=== PATIENT | male | born 1950 | race African-American/Black ===

== ENCOUNTER 2019-11-24 10:41 | Inpatient (IN) ==
[2019-11-24] MEDS ORDERED: ASPIRIN 325 MG TABLET PO STA (11:13)
[2019-11-24 11:18] LABS: Basophils % 0.8 % (0.0-0.8); Eosinophils # 0.1 10*3/uL (0.0-0.87); Eosinophils % 2.4 % (0.00-10.9); Immature Granulocytes % 0.2 %; Immature Granulocytes Absolute 0.01 #; Lymphocytes # 1.9 10*3/uL (1.4-4.0); Lymphocytes % 39.3 % (21.2-54.2); Mean Corpuscular HGB Conc 30.8 GM/DL (32-36); Mean Corpuscular Volume 94.2 FL (87-102); Mean Platelet Volume 10.7 FL (9.6-12.0); Monocytes % 13.4 % (1.7-12.7); Neutrophils % 43.9 % (38.7-73.9); Platelet Count 206 T/CUMM (130-400); Red Blood Count 4.14 MC/CUMM (3.8-5.5); Red Cell Distribution Width 18.3 % (9.3-17.3); White Blood Count 4.9 T/CUMM (4-12)
[2019-11-24 11:44] LABS: Alanine Aminotransferase 17 U/L (16-61); Albumin 3.3 G/DL (3.4-5.0); Alkaline Phosphatase 87 U/L (45-117); Aspartate Amino Transferase 22 U/L (0-37); Bilirubin,Total < 0.39 MG/DL (0.2-1.0); Blood Urea Nitrogen 16 MG/DL (7-18); Calcium 9.1 MG/DL (8.5-10.1); Estimated Glom Filtration Rate 112 ML/MIN; Glucose 92 MG/DL (74-106); Osmolality,Calculated 275.7 MOS/KG (273-304); Total Protein 7.8 G/DL (6.4-8.3)
[2019-11-24] MEDS ORDERED: lisinopriL 10 MG TABLET PO STA (12:51)
[2019-11-24] MEDS ORDERED: MAGNESIUM SULF RIDER 2 GM in PREMIX 1 EACH IV PRN ×2 (12:51→18:07)
[2019-11-24] MEDS ORDERED: MAGNESIUM SULF RIDER 4 GM in PREMIX 1 EACH IV PRN (12:51)
[2019-11-24] MEDS ORDERED: ENOXAPARIN 40 MG/0.4 ML SYRINGE SUBCUT SCH (13:00)
[2019-11-24] MEDS ORDERED: NITROGLYCERIN 2% OINT 1 INCH/GM PACK TOP STA (13:08)
[2019-11-24] MEDS ORDERED: POTASSIUM CHLORIDE RIDER 10 MEQ in PREMIX 1 EACH IV PRN (18:07)
[2019-11-24] MEDS ORDERED: hydrALAZINE 20 MG/1 ML VIAL IV PRN (18:12)
[2019-11-24] MEDS ORDERED: amLODIPine 5 MG TABLET PO ONE (18:14)
[2019-11-24] MEDS ORDERED: ENOXAPARIN 80 MG/0.8 ML SYRINGE SUBCUT SCH (21:00)
[2019-11-25] MEDS: NITROGLYCERIN 2% OINT 1 INCH/GM PACK TOP SCH ×3 (01:19→12:34)
[2019-11-25] MEDS ORDERED: DIAZEPAM 5 MG TABLET PO ONE (06:00)
[2019-11-25] MEDS ORDERED: diphenhydrAMINE CAP 25 MG CAPSULE PO ONE (06:00)
[2019-11-25 06:07] LABS: Basophils % 0.5 % (0.0-0.8); Eosinophils # 0.2 10*3/uL (0.0-0.87); Eosinophils % 3.3 % (0.00-10.9); Hematocrit 36.1 VOL% (42.0-52.0); Hemoglobin 11.4 GM/DL (14.0-18.0); Immature Granulocytes % 0.4 %; Immature Granulocytes Absolute 0.02 #; Lymphocytes # 1.8 10*3/uL (1.4-4.0); Lymphocytes % 32.4 % (21.2-54.2); Mean Corpuscular HGB Conc 31.6 GM/DL (32-36); Mean Corpuscular Volume 92.3 FL (87-102); Mean Platelet Volume 11.1 FL (9.6-12.0); Monocytes % 11.8 % (1.7-12.7); Neutrophils % 51.6 % (38.7-73.9); Platelet Count 194 T/CUMM (130-400); Red Blood Count 3.91 MC/CUMM (3.8-5.5); Red Cell Distribution Width 18.3 % (9.3-17.3); White Blood Count 5.5 T/CUMM (4-12)
[2019-11-25 06:17] LABS: PT Patient Result 10.7 SECS (9.8-11.9)
[2019-11-25 06:34] LABS: Calcium 8.9 MG/DL (8.5-10.1); Osmolality,Calculated 277.5 MOS/KG (273-304)
[2019-11-25 07:02] LABS: Troponin I 0.883 NG/ML (0.00-0.045)
[2019-11-25] MEDS ORDERED: ISOSORBIDE MONONITRATE 30 MG TABLET PO SCH (09:00)
[2019-11-25] MEDS ORDERED: ASPIRIN 325 MG TABLET PO SCH (09:00)
[2019-11-25] MEDS ORDERED: LIDOCAINE 1% 20 ML VIAL ONE (09:50)
[2019-11-25] MEDS ORDERED: HEPARIN/NACL 0.9% 2 UNITS/ML 1,000 ML IV ONE (09:50)
[2019-11-25] MEDS: amLODIPine 5 MG TABLET PO SCH (09:55)
[2019-11-25] MEDS: PANTOPRAZOLE 40 MG TABLET PO SCH (09:55)
[2019-11-25] MEDS: lisinopriL 5 MG TABLET PO SCH (09:55)
[2019-11-25] MEDS: SODIUM CHLORIDE 0.9% 1,000 ML IV SCH ×2 (10:02→18:15)
[2019-11-25] MEDS ORDERED: MIDAZOLAM 2 MG/2 ML VIAL ONE ×2 (10:11→10:24)
[2019-11-25] MEDS ORDERED: fentaNYL 100 MCG/2 ML VIAL ONE (10:11)
[2019-11-25] MEDS ORDERED: BIVALIRUDIN 250 MG VIAL IV ONE (10:34)
[2019-11-25] MEDS ORDERED: NITROGLYCERIN DRIP 50 MG/250 ML BOTTLE IV ONE (10:59)
[2019-11-25] MEDS ORDERED: TICAGRELOR 90 MG TABLET ONE (11:26)
[2019-11-25] MEDS ORDERED: ONDANSETRON 4 MG/2 ML VIAL IV PRN (11:55)
[2019-11-25] MEDS ORDERED: ACETAMINOPHEN 325 MG TABLET PO PRN (11:55)
[2019-11-25] MEDS ORDERED: ZALEPLON 5 MG CAPSULE PO PRN (11:55)
[2019-11-25] MEDS ORDERED: MORPHINE 4 MG/1 ML VIAL IV PRN (11:55)
[2019-11-25] MEDS ORDERED: ACETAMINOPHEN/CODEINE 300-30 MG TABLET PO PRN (11:55)
[2019-11-25] MEDS: TICAGRELOR 90 MG TABLET PO SCH (20:35)
[2019-11-25] MEDS ORDERED: ATORVASTATIN 40 MG TABLET PO SCH (21:00)
[2019-11-26 06:32] LABS: Basophils % 0.5 % (0.0-0.8); Eosinophils # 0.2 10*3/uL (0.0-0.87); Eosinophils % 3.1 % (0.00-10.9); Hematocrit 38.1 VOL% (42.0-52.0); Hemoglobin 11.9 GM/DL (14.0-18.0); Immature Granulocytes % 0.4 %; Immature Granulocytes Absolute 0.02 #; Lymphocytes # 1.6 10*3/uL (1.4-4.0); Lymphocytes % 28.4 % (21.2-54.2); Mean Corpuscular HGB Conc 31.2 GM/DL (32-36); Mean Corpuscular Volume 92.7 FL (87-102); Mean Platelet Volume 10.9 FL (9.6-12.0); Monocytes % 12.6 % (1.7-12.7); Platelet Count 207 T/CUMM (130-400); Red Blood Count 4.11 MC/CUMM (3.8-5.5); Red Cell Distribution Width 18.1 % (9.3-17.3); White Blood Count 5.6 T/CUMM (4-12)
[2019-11-26 06:59] LABS: Osmolality,Calculated 270.1 MOS/KG (273-304)
[2019-11-26 07:01] LABS: Risk Ratio 1.93; VLDL CHOLESTEROL 19.8 MG/DL
[2019-11-26 08:43] VITALS: BP 142/86
[2019-11-26] MEDS ORDERED: lisinopriL 10 MG TABLET PO SCH (09:00)
[2019-11-26] MEDS ORDERED: ASPIRIN EC 81 MG TABLET PO SCH (09:00)
[2019-11-26] MEDS: TICAGRELOR 90 MG TABLET PO SCH (09:18)
[2019-11-26] MEDS: amLODIPine 5 MG TABLET PO SCH (09:18)
[2019-11-26] MEDS: PANTOPRAZOLE 40 MG TABLET PO SCH (09:18)
[2019-11-26] MEDS: lisinopriL 5 MG TABLET PO SCH (09:30)
== END 2019-11-26 12:35 | disposition home or self-care (01) | DRG 249 ==
LOC: EDUNIT# → EDBD → N.ED 10:41 → N.EDINP 12:51 → N.TELEN 15:28
PROVIDERS: ADMIT Internal Medicine Cardiovascular Disease; ATTEND Internal Medicine Cardiovascular Disease
PROC: CLCCHCL (ICD-10-PCS; 2019-11-25 09:45)

== ENCOUNTER 2020-01-24 09:34 | Inpatient (IN) ==
[2020-01-24 10:24] LABS: Basophils % 0.8 % (0.0-0.8); Eosinophils # 0.1 10*3/uL (0.0-0.87); Immature Granulocytes % 0.3 %; Immature Granulocytes Absolute 0.01 #; Lymphocytes % 25.6 % (21.2-54.2); Mean Corpuscular HGB Conc 27.6 GM/DL (32-36); Mean Corpuscular Volume 80.6 FL (87-102); Mean Platelet Volume 9.9 FL (9.6-12.0); Monocytes % 13.3 % (1.7-12.7); NRBC # 0.02 10*3/uL; Platelet Count 400 T/CUMM (130-400); Red Blood Count 2.11 MC/CUMM (3.8-5.5); Red Cell Distribution Width 22.7 % (9.3-17.3)
[2020-01-24 10:35] LABS: PT Patient Result 10.7 SECS (9.8-11.9); Partial Thromboplastin Time 26.8 SECS (23.9-33.8)
[2020-01-24 10:37] LABS: Hemoglobin 4.7 GM/DL (14.0-18.0)
[2020-01-24 10:41] LABS: Albumin 4.1 G/DL (3.4-5.0); Bilirubin,Total 0.8 MG/DL (0.2-1.0); Calcium 9.1 MG/DL (8.5-10.1); Osmolality,Calculated 266.2 MOS/KG (273-304)
[2020-01-24 10:49] LABS: Hypochromasia 2+; Microcytosis 2+
[2020-01-24 10:50] LABS: Platelet Estimate Normal; Polychromasia Slight
[2020-01-24] MEDS ORDERED: SODIUM CHLORIDE 0.9% 1,000 ML IV STA (11:32)
[2020-01-24] MEDS ORDERED: PANTOPRAZOLE 40 MG VIAL IV STA (11:32)
[2020-01-24] MEDS ORDERED: ONDANSETRON 4 MG/2 ML VIAL IV STA (11:32)
[2020-01-24] MEDS ORDERED: GLUCAGON 1 MG VIAL IM PRN (14:01)
[2020-01-24] MEDS ORDERED: hydrALAZINE 20 MG/1 ML VIAL IV PRN (14:01)
[2020-01-24] MEDS ORDERED: NICOTINE 21 MG/24 HR PATCH TRANSDERM PRN (14:01)
[2020-01-24] MEDS ORDERED: SODIUM CHLORIDE 0.9% 1,000 ML IV PRN (14:01)
[2020-01-24] MEDS ORDERED: DEXTROSE 50% 25 GM/50 ML VIAL IV PRN (14:01)
[2020-01-24] MEDS ORDERED: DOCUSATE SODIUM 100 MG CAPSULE PO PRN (14:01)
[2020-01-24] MEDS ORDERED: diphenhydrAMINE CAP 25 MG CAPSULE PO PRN (14:01)
[2020-01-24] MEDS ORDERED: ONDANSETRON 4 MG/2 ML VIAL IV PRN (14:01)
[2020-01-24] MEDS ORDERED: PANTOPRAZOLE 40 MG VIAL IV SCH (14:30)
[2020-01-24] MEDS: SODIUM CHLORIDE 0.9% 1,000 ML IV SCH (15:41)
[2020-01-24] MEDS: ATORVASTATIN 40 MG TABLET PO SCH (20:21)
[2020-01-24 21:21] LABS: Apearance,Urine CLEAR (Clear); Bacteria,Urine Occasional /HPF (Few); Bilirubin,Urine Negative (Negative); Blood, Urine Small mg/dL (Negative); Glucose,Urine (UA) Negative (Negative); Ketones,Urine Negative (Negative); Mucus,Urine Occasional /LPF (Occasional); Nitrite,Urine Negative (Negative); Protein,Urine Negative; RBC,Urine 7 /HPF (0-4); Squamous Epithelial Cell,Urine Occasional /HPF (0-10); Urine Color Straw (Yellow); Urine Urobilinogen < 2.0 EU/DL (0.2-1.0); WBC,Urine 17 /HPF (0-6)
[2020-01-25 01:26] LABS: Calcium 8.4 MG/DL (8.5-10.1); Osmolality,Calculated 270.8 MOS/KG (273-304)
[2020-01-25 01:28] LABS: Hematocrit 20.9 VOL% (42.0-52.0)
[2020-01-25 01:29] LABS: Hemoglobin 6.2 GM/DL (14.0-18.0)
[2020-01-25] MEDS ORDERED: SODIUM CHLORIDE 0.9% 1,000 ML IV PRN (02:59)
[2020-01-25] MEDS: SODIUM CHLORIDE 0.9% 1,000 ML IV SCH ×2 (04:00→19:05)
[2020-01-25] MEDS: lisinopriL 10 MG TABLET PO SCH (08:32)
[2020-01-25] MEDS: amLODIPine 5 MG TABLET PO SCH (08:32)
[2020-01-25] MEDS: PANTOPRAZOLE 40 MG VIAL IV SCH (08:32)
[2020-01-25 11:23] LABS: Basophils % 1.1 % (0.0-0.8); Eosinophils # 0.1 10*3/uL (0.0-0.87); Eosinophils % 3.3 % (0.00-10.9); Hematocrit 28.9 VOL% (42.0-52.0); Hemoglobin 8.7 GM/DL (14.0-18.0); Immature Granulocytes % 0.3 %; Immature Granulocytes Absolute 0.01 #; Lymphocytes % 26.2 % (21.2-54.2); Mean Corpuscular HGB Conc 30.1 GM/DL (32-36); Mean Corpuscular Volume 81.9 FL (87-102); Monocytes % 16.1 % (1.7-12.7); NRBC # 0.03 10*3/uL; Platelet Count 285 T/CUMM (130-400); Red Blood Count 3.53 MC/CUMM (3.8-5.5); Red Cell Distribution Width 19.4 % (9.3-17.3); White Blood Count 3.7 T/CUMM (4-12)
[2020-01-25 11:50] LABS: Anisocytosis 1+; Band Neutrophils 2 % (0-10); Burr Cells Few; Eosinophils 5 % (0-10); Lymphocytes 23 % (20-55); Platelet Estimate Normal; Poikilocytosis Slight; Polychromasia Slight; Segmented Neutrophils 56 % (50-85); Target Cells Few; Total Cells Counted 100
[2020-01-25] MEDS: ATORVASTATIN 40 MG TABLET PO SCH (20:36)
[2020-01-26 04:47] LABS: Basophils # 0.1 10*3/uL (0.0-0.2); Basophils % 1.2 % (0.0-0.8); Eosinophils # 0.2 10*3/uL (0.0-0.87); Eosinophils % 4.1 % (0.00-10.9); Hematocrit 27.2 VOL% (42.0-52.0); Hemoglobin 8.1 GM/DL (14.0-18.0); Immature Granulocytes % 0.2 %; Immature Granulocytes Absolute 0.01 #; Lymphocytes # 1.4 10*3/uL (1.4-4.0); Lymphocytes % 32.8 % (21.2-54.2); Mean Corpuscular HGB Conc 29.8 GM/DL (32-36); Mean Corpuscular Volume 82.4 FL (87-102); Mean Platelet Volume 10.1 FL (9.6-12.0); Monocytes % 17.3 % (1.7-12.7); Neutrophils % 44.4 % (38.7-73.9); Platelet Count 266 T/CUMM (130-400); Red Cell Distribution Width 19.9 % (9.3-17.3); White Blood Count 4.2 T/CUMM (4-12)
[2020-01-26 05:35] LABS: Calcium 8.3 MG/DL (8.5-10.1); Osmolality,Calculated 273.5 MOS/KG (273-304)
[2020-01-26 06:31] LABS: Anisocytosis 2+; Eosinophils 3 % (0-10); Lymphocytes 31 % (20-55); Nucleated Red Blood Cells 1 (0-5); Platelet Estimate Normal; Poikilocytosis Slight; Segmented Neutrophils 50 % (50-85); Total Cells Counted 100
[2020-01-26 06:32] LABS: Basophilic Stippling Slight; Burr Cells Few; Target Cells Few
[2020-01-26] MEDS: amLODIPine 5 MG TABLET PO SCH (08:32)
[2020-01-26] MEDS: lisinopriL 10 MG TABLET PO SCH (08:34)
[2020-01-26] MEDS: PANTOPRAZOLE 40 MG VIAL IV SCH (08:34)
[2020-01-26] MEDS: SODIUM CHLORIDE 0.9% 1,000 ML IV SCH (08:49)
[2020-01-26] MEDS: ATORVASTATIN 40 MG TABLET PO SCH (20:39)
[2020-01-27 06:01] LABS: Calcium 8.9 MG/DL (8.5-10.1); Osmolality,Calculated 274.4 MOS/KG (273-304)
[2020-01-27 06:14] LABS: Basophils # 0.1 10*3/uL (0.0-0.2); Basophils % 1.1 % (0.0-0.8); Eosinophils # 0.2 10*3/uL (0.0-0.87); Eosinophils % 4.3 % (0.00-10.9); Hematocrit 28.7 VOL% (42.0-52.0); Hemoglobin 8.7 GM/DL (14.0-18.0); Immature Granulocytes % 0.2 %; Immature Granulocytes Absolute 0.01 #; Lymphocytes # 1.5 10*3/uL (1.4-4.0); Mean Corpuscular HGB Conc 30.3 GM/DL (32-36); Mean Corpuscular Volume 82.5 FL (87-102); Mean Platelet Volume 10.3 FL (9.6-12.0); Monocytes % 13.9 % (1.7-12.7); NRBC # 0.02 10*3/uL; Neutrophils % 52.5 % (38.7-73.9); Platelet Count 292 T/CUMM (130-400); Red Blood Count 3.48 MC/CUMM (3.8-5.5); Red Cell Distribution Width 20.4 % (9.3-17.3); White Blood Count 5.3 T/CUMM (4-12)
[2020-01-27] MEDS ORDERED: LACTATED RINGERS 1,000 ML IV SCH (07:30)
[2020-01-27] MEDS: PANTOPRAZOLE 40 MG VIAL IV SCH (08:53)
[2020-01-27] MEDS: amLODIPine 5 MG TABLET PO SCH (08:54)
[2020-01-27] MEDS: lisinopriL 10 MG TABLET PO SCH (08:55)
[2020-01-27] MEDS ORDERED: LIDOCAINE 2% 5 ML VIAL ONE (09:00)
[2020-01-27] MEDS ORDERED: propofoL 200 MG/20 ML VIAL IV ONE (09:00)
[2020-01-27] MEDS: ATORVASTATIN 40 MG TABLET PO SCH (21:41)
[2020-01-28 08:54] LABS: Hematocrit 29.6 VOL% (42.0-52.0); Hemoglobin 9.2 GM/DL (14.0-18.0)
[2020-01-28] MEDS: lisinopriL 10 MG TABLET PO SCH (11:30)
[2020-01-28] MEDS: PANTOPRAZOLE 40 MG VIAL IV SCH (11:30)
[2020-01-28] MEDS: amLODIPine 5 MG TABLET PO SCH (11:30)
[2020-01-28 16:13] VITALS: BP 130/64
== END 2020-01-28 16:20 | disposition home or self-care (01) | DRG 378 ==
LOC: N.ED 09:34 → N.EDINP 14:01 → SUATTDRO 14:01 → N.TELEN 15:49
PROVIDERS: ADMIT Internal Medicine; ATTEND Internal Medicine

== ENCOUNTER 2020-08-15 05:13 | Inpatient (IN) ==
[2020-08-15] MEDS ORDERED: ASPIRIN 325 MG TABLET PO STA (06:18)
[2020-08-15 06:28] LABS: Basophils # 0.1 10*3/uL (0.0-0.2); Basophils % 0.9 % (0.0-0.8); Eosinophils # 0.1 10*3/uL (0.0-0.87); Eosinophils % 2.5 % (0.00-10.9); Hematocrit 34.6 VOL% (42.0-52.0); Hemoglobin 10.5 GM/DL (14.0-18.0); Immature Granulocytes % 0.2 %; Immature Granulocytes Absolute 0.01 #; Lymphocytes # 1.9 10*3/uL (1.4-4.0); Lymphocytes % 33.2 % (21.2-54.2); Mean Corpuscular HGB Conc 30.3 GM/DL (32-36); Mean Platelet Volume 10.8 FL (9.6-12.0); Neutrophils % 54.2 % (38.7-73.9); Platelet Count 313 T/CUMM (130-400); Red Blood Count 4.22 MC/CUMM (3.8-5.5); Red Cell Distribution Width 20.8 % (9.3-17.3); White Blood Count 5.7 T/CUMM (4-12)
[2020-08-15 06:36] LABS: PT Patient Result 10.8 SECS (9.8-11.9)
[2020-08-15 06:43] LABS: Alanine Aminotransferase 17 U/L (16-61); Albumin 3.6 G/DL (3.4-5.0); Alkaline Phosphatase 91 U/L (45-117); Aspartate Amino Transferase 21 U/L (0-37); Blood Urea Nitrogen 12 MG/DL (7-18); Calcium 9.3 MG/DL (8.5-10.1); Carbon Dioxide 18 MMOL/L (21-32); Estimated Glom Filtration Rate 96 ML/MIN; Glucose 89 MG/DL (74-106); Osmolality,Calculated 275.5 MOS/KG (273-304); Potassium 3.7 MMOL/L (3.5-5.1); Sodium 139 MMOL/L (136-145); Total Protein 8.4 G/DL (6.4-8.3)
[2020-08-15 06:44] LABS: Troponin I 0.095 NG/ML (0.00-0.045)
[2020-08-15] MEDS ORDERED: GLUCAGON 1 MG VIAL IM PRN (09:12)
[2020-08-15] MEDS ORDERED: DEXTROSE 50% 25 GM/50 ML VIAL IV PRN (09:12)
[2020-08-15] MEDS: HEPARIN 5,000 UNIT/1 ML VIAL SUBCUT SCH ×2 (11:48→20:47)
[2020-08-15] MEDS ORDERED: NITROGLYCERIN SL 0.4 MG TABLET SL PRN (15:03)
[2020-08-15] MEDS: ALBUTEROL/IPRATROPIUM 3 ML NEB RESP TX SCH ×2 (15:22→18:04)
[2020-08-15 16:00] LABS: Troponin I 0.218 NG/ML (0.00-0.045)
[2020-08-15] MEDS: carvediloL 3.125 MG TABLET PO SCH (20:47)
[2020-08-15] MEDS: ATORVASTATIN 40 MG TABLET PO SCH (20:47)
[2020-08-16] MEDS: ALBUTEROL/IPRATROPIUM 3 ML NEB RESP TX SCH ×4 (00:54→19:25)
[2020-08-16] MEDS: HEPARIN 5,000 UNIT/1 ML VIAL SUBCUT SCH ×3 (04:23→20:32)
[2020-08-16 04:42] LABS: Basophils # 0.1 10*3/uL (0.0-0.2); Eosinophils # 0.2 10*3/uL (0.0-0.87); Eosinophils % 3.9 % (0.00-10.9); Hematocrit 32.7 VOL% (42.0-52.0); Hemoglobin 9.7 GM/DL (14.0-18.0); Immature Granulocytes % 0.2 %; Immature Granulocytes Absolute 0.01 #; Lymphocytes % 41.2 % (21.2-54.2); Mean Corpuscular HGB Conc 29.7 GM/DL (32-36); Mean Corpuscular Volume 82.8 FL (87-102); Mean Platelet Volume 10.3 FL (9.6-12.0); Monocytes % 13.3 % (1.7-12.7); Neutrophils % 40.4 % (38.7-73.9); Platelet Count 273 T/CUMM (130-400); Red Blood Count 3.95 MC/CUMM (3.8-5.5); White Blood Count 4.8 T/CUMM (4-12)
[2020-08-16 04:59] LABS: Calcium 8.8 MG/DL (8.5-10.1); Osmolality,Calculated 282.1 MOS/KG (273-304); Potassium 3.7 MMOL/L (3.5-5.1)
[2020-08-16 05:01] LABS: Hypochromasia 1+; Microcytosis 1+; Platelet Estimate Adequate
[2020-08-16 05:02] LABS: Risk Ratio 1.76; VLDL CHOLESTEROL 8.6 MG/DL
[2020-08-16 05:04] LABS: Troponin I 0.118 NG/ML (0.00-0.045)
[2020-08-16] MEDS: ASPIRIN EC 81 MG TABLET PO SCH (08:53)
[2020-08-16] MEDS: carvediloL 3.125 MG TABLET PO SCH ×2 (08:53→20:32)
[2020-08-16] MEDS: PANTOPRAZOLE 40 MG TABLET PO SCH (08:53)
[2020-08-16] MEDS: lisinopriL 10 MG TABLET PO SCH (08:53)
[2020-08-16] MEDS ORDERED: amLODIPine 5 MG TABLET PO SCH (09:00)
[2020-08-16] MEDS: ATORVASTATIN 40 MG TABLET PO SCH (20:32)
[2020-08-17] MEDS: ALBUTEROL/IPRATROPIUM 3 ML NEB RESP TX SCH ×4 (01:40→19:37)
[2020-08-17] MEDS: HEPARIN 5,000 UNIT/1 ML VIAL SUBCUT SCH (04:00)
[2020-08-17 06:38] LABS: Basophils % 0.8 % (0.0-0.8); Eosinophils # 0.2 10*3/uL (0.0-0.87); Eosinophils % 3.5 % (0.00-10.9); Hematocrit 32.4 VOL% (42.0-52.0); Hemoglobin 9.8 GM/DL (14.0-18.0); Lymphocytes # 1.9 10*3/uL (1.4-4.0); Lymphocytes % 39.1 % (21.2-54.2); Mean Corpuscular HGB Conc 30.2 GM/DL (32-36); Mean Corpuscular Volume 82.9 FL (87-102); Mean Platelet Volume 11.2 FL (9.6-12.0); Monocytes % 14.5 % (1.7-12.7); Neutrophils % 42.1 % (38.7-73.9); Platelet Count 257 T/CUMM (130-400); Red Blood Count 3.91 MC/CUMM (3.8-5.5); Red Cell Distribution Width 21.1 % (9.3-17.3); White Blood Count 4.9 T/CUMM (4-12)
[2020-08-17 06:53] LABS: Calcium 9.3 MG/DL (8.5-10.1); Osmolality,Calculated 276.5 MOS/KG (273-304); Potassium 3.6 MMOL/L (3.5-5.1)
[2020-08-17] MEDS: carvediloL 3.125 MG TABLET PO SCH ×2 (08:27→20:47)
[2020-08-17] MEDS: lisinopriL 10 MG TABLET PO SCH (08:27)
[2020-08-17] MEDS: PANTOPRAZOLE 40 MG TABLET PO SCH (08:27)
[2020-08-17] MEDS: ASPIRIN EC 81 MG TABLET PO SCH (08:27)
[2020-08-17] MEDS ORDERED: DIAZEPAM 5 MG TABLET PO ONE (13:46)
[2020-08-17] MEDS ORDERED: diphenhydrAMINE CAP 25 MG CAPSULE PO ONE (13:46)
[2020-08-17] MEDS ORDERED: SODIUM CHLORIDE 0.45% 1,000 ML IV SCH (14:00)
[2020-08-17] MEDS ORDERED: LIDOCAINE 1% 20 ML VIAL ONE (14:49)
[2020-08-17] MEDS ORDERED: HEPARIN/NACL 0.9% 2 UNITS/ML 1,000 ML IV ONE (14:49)
[2020-08-17] MEDS ORDERED: fentaNYL 100 MCG/2 ML VIAL ONE (14:53)
[2020-08-17] MEDS ORDERED: MIDAZOLAM 2 MG/2 ML VIAL ONE (14:53)
[2020-08-17] MEDS ORDERED: BIVALIRUDIN 250 MG VIAL IV ONE (15:21)
[2020-08-17] MEDS ORDERED: CLOPIDOGREL 300 MG TABLET ONE (15:50)
[2020-08-17] MEDS ORDERED: hydrALAZINE 20 MG/1 ML VIAL ONE (15:54)
[2020-08-17] MEDS ORDERED: MORPHINE 4 MG/1 ML VIAL IV PRN (16:08)
[2020-08-17] MEDS ORDERED: ACETAMINOPHEN 325 MG TABLET PO PRN (16:08)
[2020-08-17] MEDS ORDERED: ACETAMINOPHEN/CODEINE 300-30 MG TABLET PO PRN (16:08)
[2020-08-17] MEDS: ATORVASTATIN 40 MG TABLET PO SCH (20:47)
[2020-08-17 22:09] LABS: Hematocrit 32.9 VOL% (42.0-52.0); Hemoglobin 10.4 GM/DL (14.0-18.0)
[2020-08-18] MEDS: ALBUTEROL/IPRATROPIUM 3 ML NEB RESP TX SCH ×3 (00:09→13:20)
[2020-08-18 05:42] LABS: Basophils % 0.6 % (0.0-0.8); Eosinophils # 0.2 10*3/uL (0.0-0.87); Eosinophils % 3.6 % (0.00-10.9); Hematocrit 33.1 VOL% (42.0-52.0); Hemoglobin 10.2 GM/DL (14.0-18.0); Immature Granulocytes % 0.2 %; Immature Granulocytes Absolute 0.01 #; Lymphocytes # 1.4 10*3/uL (1.4-4.0); Lymphocytes % 29.3 % (21.2-54.2); Mean Corpuscular HGB Conc 30.8 GM/DL (32-36); Mean Platelet Volume 10.4 FL (9.6-12.0); Monocytes % 14.1 % (1.7-12.7); Neutrophils % 52.2 % (38.7-73.9); Platelet Count 265 T/CUMM (130-400); Red Blood Count 4.14 MC/CUMM (3.8-5.5); Red Cell Distribution Width 20.9 % (9.3-17.3); White Blood Count 4.7 T/CUMM (4-12)
[2020-08-18 06:11] LABS: Calcium 9.5 MG/DL (8.5-10.1); Osmolality,Calculated 271.8 MOS/KG (273-304); Potassium 3.9 MMOL/L (3.5-5.1)
[2020-08-18] MEDS: lisinopriL 10 MG TABLET PO SCH (08:27)
[2020-08-18] MEDS: PANTOPRAZOLE 40 MG TABLET PO SCH (08:27)
[2020-08-18] MEDS: carvediloL 3.125 MG TABLET PO SCH (08:27)
[2020-08-18] MEDS ORDERED: ASPIRIN 325 MG TABLET PO SCH (09:00)
[2020-08-18] MEDS ORDERED: CLOPIDOGREL 75 MG TABLET PO SCH (09:00)
[2020-08-18] MEDS ORDERED: LOSARTAN 25 MG TABLET PO SCH (09:30)
[2020-08-18] MEDS: HEPARIN 5,000 UNIT/1 ML VIAL SUBCUT SCH (13:43)
[2020-08-18 16:08] VITALS: BP 113/79
[2020-08-18] MEDS ORDERED: FERROUS SULFATE 325 MG TABLET PO SCH (21:00)
[2020-08-19] MEDS ORDERED: LOSARTAN 25 MG TABLET PO SCH (09:00)
== END 2020-08-18 17:02 | disposition home health service (06) | DRG 246 ==
LOC: EDUNIT# → EDBD → N.EDINP 05:13 → N.ED 05:13 → N.TELEN 08:02
PROVIDERS: ADMIT Internal Medicine; ATTEND Internal Medicine
PROC: CLCCHCL (ICD-10-PCS; 2020-08-17 15:15)

== ENCOUNTER 2021-02-08 12:48 | Observation (INO) ==
[2021-02-08 14:12] LABS: Basophils % 0.5 % (0.0-0.8); Eosinophils % 0.5 % (0.00-10.9); Hematocrit 40.9 VOL% (42.0-52.0); Hemoglobin 13.3 GM/DL (14.0-18.0); Immature Granulocytes % 0.3 %; Immature Granulocytes Absolute 0.01 #; Lymphocytes # 1.5 10*3/uL (1.4-4.0); Lymphocytes % 40.1 % (21.2-54.2); Mean Corpuscular HGB Conc 32.5 GM/DL (32-36); Mean Corpuscular Volume 96.2 FL (87-102); Mean Platelet Volume 11.2 FL (9.6-12.0); Monocytes % 14.1 % (1.7-12.7); Neutrophils % 44.5 % (38.7-73.9); Platelet Count 202 T/CUMM (130-400); Red Blood Count 4.25 MC/CUMM (3.8-5.5); Red Cell Distribution Width 14.3 % (9.3-17.3); White Blood Count 3.8 T/CUMM (4-12)
[2021-02-08 14:32] LABS: Albumin 3.4 G/DL (3.4-5.0); Bilirubin,Total 0.5 MG/DL (0.20-1.00); Calcium 8.7 MG/DL (8.5-10.1); Osmolality,Calculated 271.1 MOS/KG (273-304); Potassium 3.7 MMOL/L (3.5-5.1); Total Protein 8.4 G/DL (6.4-8.2)
[2021-02-08] MEDS ORDERED: MAGNESIUM SULF RIDER 2 GM/50 ML PREMIX IV PRN (14:49)
[2021-02-08] MEDS ORDERED: MAGNESIUM SULF RIDER 4 GM/100 ML PREMIX IV PRN (14:49)
[2021-02-08] MEDS ORDERED: ZALEPLON 5 MG CAPSULE PO PRN (14:49)
[2021-02-08] MEDS ORDERED: ACETAMINOPHEN 325 MG TABLET PO PRN (14:49)
[2021-02-08] MEDS ORDERED: MORPHINE 2 MG/1 ML SYRINGE IV PRN (14:49)
[2021-02-08] MEDS ORDERED: BISACODYL 5 MG TABLET PO PRN (14:49)
[2021-02-08] MEDS ORDERED: ONDANSETRON 4 MG/2 ML VIAL IV PRN (14:49)
[2021-02-08] MEDS ORDERED: POLYETHYLENE GLYCOL POWDER 17 GM PACK PO PRN (15:50)
[2021-02-08] MEDS ORDERED: hydrALAZINE 20 MG/1 ML VIAL IV PRN (15:50)
[2021-02-08] MEDS ORDERED: NITROGLYCERIN SL 0.4 MG TABLET SL PRN (15:50)
[2021-02-08] MEDS ORDERED: ALUMINUM/MAGNES/SIMETH MAX STR 30 ML UDCUP PO PRN (15:50)
[2021-02-08] MEDS ORDERED: MAGNESIUM HYDROXIDE SUSP 30 ML UDCUP PO PRN (15:50)
[2021-02-08 16:44] LABS: Eosinophils 5 % (0-10); Lymphocytes 40 % (20-55); Platelet Estimate Normal; Segmented Neutrophils 44 % (50-85); Total Cells Counted 100
[2021-02-08] MEDS: POLYETHYLENE GLYCOL POWDER 17 GM PACK PO SCH (17:18)
[2021-02-08 18:00] LABS: Ferritin 225.1 ng/ml (26-388)
[2021-02-08] MEDS: carvediloL 3.125 MG TABLET PO SCH (21:05)
[2021-02-08] MEDS: DOXYCYCLINE HYCLATE 100 MG CAPSULE PO SCH (21:05)
[2021-02-08] MEDS: FAMOTIDINE 20 MG TABLET PO SCH (21:05)
[2021-02-08] MEDS: ASCORBIC ACID 500 MG TABLET PO SCH (21:06)
[2021-02-09] MEDS: ALBUTEROL INHALER 18 GM INH SCH ×3 (03:08→13:04)
[2021-02-09 04:47] VITALS: BP 141/79
[2021-02-09 05:46] LABS: Basophils % 0.3 % (0.0-0.8); Eosinophils % 0.5 % (0.00-10.9); Hematocrit 42.9 VOL% (42.0-52.0); Hemoglobin 13.7 GM/DL (14.0-18.0); Immature Granulocytes % 0.5 %; Immature Granulocytes Absolute 0.02 #; Lymphocytes # 1.5 10*3/uL (1.4-4.0); Lymphocytes % 38.8 % (21.2-54.2); Mean Corpuscular HGB Conc 31.9 GM/DL (32-36); Mean Corpuscular Volume 98.8 FL (87-102); Monocytes % 14.7 % (1.7-12.7); Neutrophils % 45.2 % (38.7-73.9); Platelet Count 198 T/CUMM (130-400); Red Blood Count 4.34 MC/CUMM (3.8-5.5); Red Cell Distribution Width 14.5 % (9.3-17.3); White Blood Count 3.9 T/CUMM (4-12)
[2021-02-09 06:10] LABS: Ferritin 232.6 ng/ml (26-388)
[2021-02-09 06:16] LABS: Hypochromasia 1+; Microcytosis 1+
[2021-02-09 06:17] LABS: Platelet Estimate Adequate
[2021-02-09 06:29] LABS: Calcium 9.1 MG/DL (8.5-10.1); Osmolality,Calculated 271.8 MOS/KG (273-304); Potassium 3.8 MMOL/L (3.5-5.1); Risk Ratio 2.98; Thyroid Stimulating Hormone 1.36 uIU/ml (0.358-3.74)
[2021-02-09] MEDS ORDERED: methylPREDNISolone SOD SUC 125 MG/2 ML VIAL IV PRN (08:30)
[2021-02-09] MEDS ORDERED: SODIUM CHLORIDE 0.9% 200 ML IV SCH (08:30)
[2021-02-09] MEDS ORDERED: diphenhydrAMINE 50 MG/1 ML VIAL IV PRN ×2 (08:30)
[2021-02-09] MEDS ORDERED: SODIUM CHLORIDE 0.9% 1,000 ML IV SCH (08:30)
[2021-02-09] MEDS ORDERED: CASIRIVIMAB/IMDEVIMAB 1,200 MG in SODIUM CHLORIDE 0.9% 100 ML IV ONE (08:30)
[2021-02-09] MEDS ORDERED: MECLIZINE 25 MG TABLET PO PRN (08:30)
[2021-02-09] MEDS: POLYETHYLENE GLYCOL POWDER 17 GM PACK PO SCH (08:55)
[2021-02-09] MEDS: FAMOTIDINE 20 MG TABLET PO SCH (08:56)
[2021-02-09] MEDS: DOXYCYCLINE HYCLATE 100 MG CAPSULE PO SCH (08:56)
[2021-02-09] MEDS: carvediloL 3.125 MG TABLET PO SCH (08:57)
[2021-02-09] MEDS: ASCORBIC ACID 500 MG TABLET PO SCH (08:57)
[2021-02-09] MEDS ORDERED: CLOPIDOGREL 75 MG TABLET PO SCH (09:00)
[2021-02-09] MEDS ORDERED: CETIRIZINE 10 MG TABLET PO SCH (09:00)
[2021-02-09] MEDS ORDERED: AZITHROMYCIN 250 MG TABLET PO SCH (09:00)
[2021-02-09] MEDS ORDERED: DEXAMETHASONE 4 MG/1 ML VIAL PO SCH (09:00)
[2021-02-09] MEDS ORDERED: ASPIRIN EC 81 MG TABLET PO SCH (09:00)
[2021-02-09] MEDS ORDERED: DEXAMETHASONE 4 MG/1 ML VIAL IV SCH (09:00)
[2021-02-09] MEDS ORDERED: LOSARTAN 25 MG TABLET PO SCH (09:00)
[2021-02-09] MEDS ORDERED: CHOLECALCIFEROL 1,000 UNIT TABLET PO SCH (09:00)
[2021-02-09] MEDS ORDERED: ZINC GLUCONATE 50 MG TABLET PO SCH (09:00)
[2021-02-09] MEDS ORDERED: PANTOPRAZOLE 40 MG TABLET PO SCH (09:00)
[2021-02-09] MEDS ORDERED: ATORVASTATIN 40 MG TABLET PO SCH (21:00)
== END 2021-02-09 14:36 | disposition home or self-care (01) ==
LOC: EDUNIT# → EDBD → N.ED 12:48 → N.EDINP 12:48 → N.2E 02-09 00:55
PROVIDERS: ADMIT Internal Medicine Cardiovascular Disease; ATTEND Internal Medicine Cardiovascular Disease

== ENCOUNTER 2021-10-23 18:40 | Inpatient (IN) ==
[2021-10-23 19:46] LABS: Basophils % 0.5 % (0.0-0.8); Eosinophils # 0.1 10*3/uL (0.0-0.87); Eosinophils % 1.9 % (0.00-10.9); Immature Granulocytes % 0.3 %; Immature Granulocytes Absolute 0.01 #; Lymphocytes # 1.1 10*3/uL (1.4-4.0); Lymphocytes % 29.7 % (21.2-54.2); Mean Corpuscular Volume 76.4 FL (87-102); Mean Platelet Volume 9.9 FL (9.6-12.0); Monocytes # 0.7 10*3/uL (0.11-0.8); Monocytes % 19.5 % (1.7-12.7); NRBC # 0.02 10*3/uL; Neutrophils % 48.1 % (38.7-73.9); Platelet Count 302 T/CUMM (130-400); Red Blood Count 2.08 MC/CUMM (3.8-5.5); Red Cell Distribution Width 21.5 % (9.3-17.3); White Blood Count 3.7 T/CUMM (4-12)
[2021-10-23 19:48] LABS: Hematocrit 15.9 VOL% (42.0-52.0); Hemoglobin 4.3 GM/DL (14.0-18.0)
[2021-10-23 19:56] LABS: PT Patient Result 11.2 SECS (10.5-12.0)
[2021-10-23 20:04] LABS: Alanine Aminotransferase 20 U/L (16-61); Albumin 3.5 G/DL (3.4-5.0); Alkaline Phosphatase 73 U/L (45-117); Aspartate Amino Transferase 15 U/L (0-37); Bilirubin,Total < 0.39 MG/DL (0.20-1.00); Blood Urea Nitrogen 20 MG/DL (7-18); Calcium 9.3 MG/DL (8.5-10.1); Carbon Dioxide 22 MMOL/L (21-32); Chloride 113 MMOL/L (98-107); Estimated Glom Filtration Rate 99 ML/MIN; Glucose 104 MG/DL (74-106); Osmolality,Calculated 283.3 MOS/KG (273-304); Potassium 3.8 MMOL/L (3.5-5.1); Sodium 141 MMOL/L (136-145); Total Protein 6.9 G/DL (6.4-8.2)
[2021-10-23 20:15] LABS: Eosinophils 6 % (0-10); Lymphocytes 25 % (20-55); Nucleated Red Blood Cells 1 (0-5); Total Cells Counted 100
[2021-10-23 20:16] LABS: Anisocytosis 2+; Atypical Lymphocytes Few; Burr Cells Few; Elliptocytes Few; Hypochromia 2+; Macrocytosis Slight; Microcytosis 2+; Platelet Estimate Normal; Poikilocytosis Few; Polychromasia 1+; Target Cells 1+
[2021-10-23] MEDS ORDERED: FUROSEMIDE 40 MG/4 ML VIAL IV PRN (20:47)
[2021-10-23] MEDS ORDERED: SODIUM CHLORIDE 0.9% 1,000 ML IV PRN (20:47)
[2021-10-23] MEDS ORDERED: diphenhydrAMINE 50 MG/1 ML VIAL IV PRN (20:47)
[2021-10-23 22:22] LABS: % Iron Saturation 3.9 % (18-50)
[2021-10-24] MEDS ORDERED: NICOTINE 21 MG/24 HR PATCH TRANSDERM PRN (00:03)
[2021-10-24] MEDS ORDERED: DEXTROSE 10% 250 ML BAG IV PRN (00:03)
[2021-10-24] MEDS ORDERED: ONDANSETRON 4 MG/2 ML VIAL IV PRN (00:03)
[2021-10-24] MEDS ORDERED: ZALEPLON 5 MG CAPSULE PO PRN (00:03)
[2021-10-24] MEDS ORDERED: hydrALAZINE 20 MG/1 ML VIAL IV PRN (00:03)
[2021-10-24] MEDS ORDERED: ACETAMINOPHEN 325 MG TABLET PO PRN (00:03)
[2021-10-24] MEDS ORDERED: guaiFENesin/DM ER 600-30 MG TABLET PO PRN (00:03)
[2021-10-24] MEDS ORDERED: GLUCAGON 1 MG VIAL IM PRN (00:03)
[2021-10-24 05:41] LABS: Basophils % 1.2 % (0.0-0.8); Eosinophils # 0.1 10*3/uL (0.0-0.87); Eosinophils % 3.4 % (0.00-10.9); Hematocrit 24.3 VOL% (42.0-52.0); Immature Granulocytes % 0.3 %; Immature Granulocytes Absolute 0.01 #; Lymphocytes # 0.9 10*3/uL (1.4-4.0); Lymphocytes % 26.5 % (21.2-54.2); Mean Corpuscular HGB Conc 29.6 GM/DL (32-36); Mean Corpuscular Volume 77.6 FL (87-102); Mean Platelet Volume 10.2 FL (9.6-12.0); Monocytes # 0.3 10*3/uL (0.11-0.8); Monocytes % 10.6 % (1.7-12.7); NRBC # 0.04 10*3/uL; Platelet Count 292 T/CUMM (130-400); Red Cell Distribution Width 19.6 % (9.3-17.3); White Blood Count 3.2 T/CUMM (4-12)
[2021-10-24 05:46] LABS: Hemoglobin 7.2 GM/DL (14.0-18.0); Red Blood Count 3.13 MC/CUMM (3.8-5.5)
[2021-10-24 06:50] LABS: Sedimentation Rate-Westergren 35 MM/HR (0-20)
[2021-10-24] MEDS ORDERED: IRON SUCROSE 200 MG in SODIUM CHLORIDE 0.9% 100 ML IV SCH (09:00)
[2021-10-24] MEDS: carvediloL 3.125 MG TABLET PO SCH ×2 (09:00→21:02)
[2021-10-24] MEDS ORDERED: carvediloL 3.125 MG TABLET PO SCH (09:00)
[2021-10-24] MEDS ORDERED: PANTOPRAZOLE 40 MG TABLET PO SCH (09:00)
[2021-10-24] MEDS: FERRIC GLUCONATE COMPLEX 125 MG in SODIUM CHLORIDE 0.9% 100 ML IV SCH (09:00)
[2021-10-24] MEDS: LOSARTAN 25 MG TABLET PO SCH (09:00)
[2021-10-24] MEDS ORDERED: LOSARTAN 25 MG TABLET PO SCH (09:00)
[2021-10-24] MEDS ORDERED: IRON DEXTRAN 25 MG in SYRINGE 1 EACH IV ONE (12:34)
[2021-10-24] MEDS ORDERED: IRON DEXTRAN 1,000 MG in SODIUM CHLORIDE 0.9% 500 ML IV ONE (12:34)
[2021-10-24] MEDS ORDERED: FAMOTIDINE 20 MG/2 ML VIAL IV ONE (12:35)
[2021-10-24] MEDS ORDERED: ACETAMINOPHEN 500 MG TABLET PO ONE (12:35)
[2021-10-24] MEDS ORDERED: DEXAMETHASONE INJ 20 MG in SODIUM CHLORIDE 0.9% 50 ML IV ONE (12:36)
[2021-10-24] MEDS ORDERED: diphenhydrAMINE 50 MG/1 ML VIAL IV ONE (12:36)
[2021-10-24] MEDS ORDERED: FERRIC GLUCONATE COMPLEX 125 MG in SODIUM CHLORIDE 0.9% 100 ML IV ONE (14:00)
[2021-10-24] MEDS ORDERED: ATORVASTATIN 40 MG TABLET PO SCH (21:00)
[2021-10-24] MEDS: ATORVASTATIN 40 MG TABLET PO SCH (21:02)
[2021-10-25 04:56] LABS: Basophils # 0.1 10*3/uL (0.0-0.2); Basophils % 1.2 % (0.0-0.8); Eosinophils # 0.2 10*3/uL (0.0-0.87); Eosinophils % 5.1 % (0.00-10.9); Hematocrit 23.9 VOL% (42.0-52.0); Immature Granulocytes % 0.5 %; Immature Granulocytes Absolute 0.02 #; Lymphocytes # 1.4 10*3/uL (1.4-4.0); Lymphocytes % 33.3 % (21.2-54.2); Mean Corpuscular HGB Conc 29.3 GM/DL (32-36); Mean Corpuscular Volume 77.6 FL (87-102); Mean Platelet Volume 10.1 FL (9.6-12.0); Monocytes # 0.8 10*3/uL (0.11-0.8); Monocytes % 18.4 % (1.7-12.7); NRBC # 0.04 10*3/uL; Neutrophils % 41.5 % (38.7-73.9); Platelet Count 276 T/CUMM (130-400); Red Blood Count 3.08 MC/CUMM (3.8-5.5); Red Cell Distribution Width 20.9 % (9.3-17.3); White Blood Count 4.3 T/CUMM (4-12)
[2021-10-25 05:19] LABS: Eosinophils 4 % (0-10); Hypochromia 1+; Lymphocytes 35 % (20-55); Microcytosis 1+; Nucleated Red Blood Cells 2 (0-5); Platelet Estimate Adequate; Total Cells Counted 100
[2021-10-25 05:23] LABS: Calcium 8.6 MG/DL (8.5-10.1); Osmolality,Calculated 280.1 MOS/KG (273-304); Potassium 3.5 MMOL/L (3.5-5.1)
[2021-10-25 06:28] LABS: Hepatitis B Core IgM Quant 0.07 Index; Hepatitis B Surface Ag Quant 0.33 Index; Hepatitis B Surface Ag Result Non-Reactive (NonReactive); Hepatitis C Virus Ab Quant 0.14 Index; Hepatitis C Virus Ab Result Non-Reactive (NonReactive)
[2021-10-25] MEDS ORDERED: SODIUM CHLORIDE 0.9% 1,000 ML IV PRN (08:07)
[2021-10-25 09:04] LABS: Hemoglobin A1 (Alkaline) 98.4 % (96.5-98.5); Hemoglobin A2 (Alkaline) 1.6 % (1.5-3.5)
[2021-10-25] MEDS: FERRIC GLUCONATE COMPLEX 125 MG in SODIUM CHLORIDE 0.9% 100 ML IV SCH (10:42)
[2021-10-25] MEDS: LOSARTAN 25 MG TABLET PO SCH (14:42)
[2021-10-25] MEDS: carvediloL 3.125 MG TABLET PO SCH (14:42)
[2021-10-25 20:00] LABS: Folate 17.53 NG/ML (5.38-24.0); Vitamin B12 490 PG/ML (211-911)
[2021-10-25] MEDS: ATORVASTATIN 40 MG TABLET PO SCH (20:48)
[2021-10-25] MEDS: PANTOPRAZOLE 40 MG TABLET PO SCH (20:51)
[2021-10-26] MEDS: LOSARTAN 25 MG TABLET PO SCH (08:35)
[2021-10-26] MEDS: PANTOPRAZOLE 40 MG TABLET PO SCH (08:55)
[2021-10-26] MEDS: FERRIC GLUCONATE COMPLEX 125 MG in SODIUM CHLORIDE 0.9% 100 ML IV SCH (08:55)
[2021-10-26] MEDS ORDERED: LACTATED RINGERS 1,000 ML IV SCH (09:00)
[2021-10-26 09:27] LABS: Basophils # 0.1 10*3/uL (0.0-0.2); Basophils % 1.2 % (0.0-0.8); Eosinophils # 0.2 10*3/uL (0.0-0.87); Eosinophils % 4.7 % (0.00-10.9); Hematocrit 28.9 VOL% (42.0-52.0); Hemoglobin 8.5 GM/DL (14.0-18.0); Immature Granulocytes % 0.2 %; Immature Granulocytes Absolute 0.01 #; Lymphocytes # 1.1 10*3/uL (1.4-4.0); Lymphocytes % 25.9 % (21.2-54.2); Mean Corpuscular HGB Conc 29.4 GM/DL (32-36); Mean Corpuscular Volume 78.7 FL (87-102); Mean Platelet Volume 9.3 FL (9.6-12.0); Monocytes # 0.8 10*3/uL (0.11-0.8); Monocytes % 19.3 % (1.7-12.7); NRBC # 0.04 10*3/uL; Neutrophils % 48.7 % (38.7-73.9); Platelet Count 248 T/CUMM (130-400); Red Blood Count 3.67 MC/CUMM (3.8-5.5); Red Cell Distribution Width 20.9 % (9.3-17.3); White Blood Count 4.3 T/CUMM (4-12)
[2021-10-26 09:48] LABS: Eosinophils 7 % (0-10); Hypochromia 2+; Lymphocytes 30 % (20-55); Microcytosis 2+; Nucleated Red Blood Cells 1 (0-5); Total Cells Counted 100
[2021-10-26 09:49] LABS: Platelet Estimate Normal; Polychromasia Slight
[2021-10-26 10:01] LABS: Albumin 3.5 G/DL (3.4-5.0); Bilirubin,Total 1.1 MG/DL (0.20-1.00); Calcium 9.1 MG/DL (8.5-10.1); Osmolality,Calculated 277.3 MOS/KG (273-304); Potassium 3.9 MMOL/L (3.5-5.1)
[2021-10-26 13:25] VITALS: BP 148/77
[2021-10-26] MEDS ORDERED: BISACODYL 5 MG TABLET PO ONE (15:00)
[2021-10-26] MEDS ORDERED: POLYETHYLENE GLYCOL POWDER 255 GM BOTTLE PO ONE (18:00)
[2021-10-27] MEDS ORDERED: POLYETHYLENE GLYCOL POWDER 255 GM BOTTLE PO ONE (05:00)
[2021-10-27] MEDS ORDERED: LACTATED RINGERS 1,000 ML IV SCH (08:30)
== END 2021-10-26 15:57 | disposition home or self-care (01) | DRG 812 ==
LOC: N.TELES 18:40 → N.ED 18:40 → SUATTDRO 10-24 00:03 → N.TELES 10-24 00:48 → SUATTDRO 10-25 07:09
PROVIDERS: ADMIT Internal Medicine Geriatric Medicine; ATTEND Internal Medicine

== ENCOUNTER 2022-01-12 12:01 | Observation (INO) ==
[2022-01-12 12:49] LABS: PT Patient Result 10.9 SECS (10.5-12.0); Partial Thromboplastin Time 26.1 SECS (23.7-32.9)
[2022-01-12 12:56] LABS: Basophils % 0.6 % (0.0-0.8); Eosinophils # 0.2 10*3/uL (0.0-0.87); Eosinophils % 3.9 % (0.00-10.9); Hematocrit 28.4 VOL% (42.0-52.0); Immature Granulocytes % 0.4 %; Immature Granulocytes Absolute 0.02 #; Lymphocytes % 20.9 % (21.2-54.2); Mean Corpuscular HGB Conc 28.2 GM/DL (32-36); Mean Platelet Volume 9.9 FL (9.6-12.0); Monocytes # 0.7 10*3/uL (0.11-0.8); Monocytes % 13.8 % (1.7-12.7); Neutrophils % 60.4 % (38.7-73.9); Platelet Count 357 T/CUMM (130-400); Red Blood Count 3.38 MC/CUMM (3.8-5.5); Red Cell Distribution Width 21.8 % (9.3-17.3); White Blood Count 4.9 T/CUMM (4-12)
[2022-01-12 13:01] LABS: Alanine Aminotransferase 25 U/L (16-61); Albumin 3.7 G/DL (3.4-5.0); Alkaline Phosphatase 81 U/L (45-117); Aspartate Amino Transferase 19 U/L (0-37); Bilirubin,Total < 0.39 MG/DL (0.20-1.00); Blood Urea Nitrogen 16 MG/DL (7-18); Calcium 9.4 MG/DL (8.5-10.1); Carbon Dioxide 23 MMOL/L (21-32); Chloride 109 MMOL/L (98-107); Glucose 94 MG/DL (74-106); Osmolality,Calculated 279.4 MOS/KG (273-304); Potassium 4.2 MMOL/L (3.5-5.1); Sodium 140 MMOL/L (136-145); Total Protein 7.3 G/DL (6.4-8.2)
[2022-01-12 13:15] LABS: Hypochromia 1+
[2022-01-12 13:16] LABS: Platelet Estimate Adequate
[2022-01-12] MEDS ORDERED: ACETAMINOPHEN 325 MG TABLET PO PRN (15:00)
[2022-01-12] MEDS ORDERED: GLUCAGON 1 MG VIAL IM PRN (15:00)
[2022-01-12] MEDS ORDERED: DEXTROSE 10% 250 ML BAG IV PRN (15:00)
[2022-01-12] MEDS ORDERED: ONDANSETRON 4 MG/2 ML VIAL IV PRN (15:00)
[2022-01-12] MEDS ORDERED: ENOXAPARIN 40 MG/0.4 ML SYRINGE SUBCUT SCH (15:00)
[2022-01-12] MEDS ORDERED: NICOTINE 21 MG/24 HR PATCH TRANSDERM PRN (15:32)
[2022-01-12 19:29] LABS: Barbiturates Screen,Urine Negative (Negative); Benzodiazepines Screen,Urine Negative (Negative); Cannabinoid Screen,Urine Negative (Negative); Opiate Screen,Urine Negative (Negative); Phencyclidine Screen,Urine Negative (Negative)
[2022-01-12] MEDS: carvediloL 6.25 MG TABLET PO SCH (22:16)
[2022-01-13 05:09] LABS: Calcium 8.9 MG/DL (8.5-10.1); Osmolality,Calculated 271.1 MOS/KG (273-304); Potassium 4.1 MMOL/L (3.5-5.1); Risk Ratio 1.8; VLDL Cholesterol 15.6 MG/DL
[2022-01-13 05:10] LABS: % Iron Saturation 1.8 % (18-50)
[2022-01-13 05:43] LABS: Basophils # 0.1 10*3/uL (0.0-0.2); Eosinophils # 0.2 10*3/uL (0.0-0.87); Eosinophils % 4.1 % (0.00-10.9); Hematocrit 26.8 VOL% (42.0-52.0); Hemoglobin 7.6 GM/DL (14.0-18.0); Immature Granulocytes % 0.2 %; Immature Granulocytes Absolute 0.01 #; Lymphocytes # 1.5 10*3/uL (1.4-4.0); Lymphocytes % 29.9 % (21.2-54.2); Mean Corpuscular HGB Conc 28.4 GM/DL (32-36); Mean Corpuscular Volume 83.2 FL (87-102); Mean Platelet Volume 9.8 FL (9.6-12.0); Monocytes # 0.7 10*3/uL (0.11-0.8); Monocytes % 14.2 % (1.7-12.7); Neutrophils % 50.6 % (38.7-73.9); Platelet Count 321 T/CUMM (130-400); Red Blood Count 3.22 MC/CUMM (3.8-5.5); Red Cell Distribution Width 21.8 % (9.3-17.3); White Blood Count 5.2 T/CUMM (4-12)
[2022-01-13 06:06] LABS: Anisocytosis 1+; Hypochromia 1+; Microcytosis 1+; Ovalocytes Slight; Platelet Estimate Normal; Polychromasia Slight
[2022-01-13] MEDS ORDERED: DOCUSATE SODIUM 100 MG CAPSULE PO SCH (09:00)
[2022-01-13] MEDS ORDERED: LOSARTAN 25 MG TABLET PO SCH (09:00)
[2022-01-13] MEDS ORDERED: ASPIRIN EC 81 MG TABLET PO SCH (09:00)
[2022-01-13] MEDS ORDERED: PANTOPRAZOLE 40 MG TABLET PO SCH (09:00)
[2022-01-13] MEDS ORDERED: ATORVASTATIN 40 MG TABLET PO SCH (09:00)
[2022-01-13] MEDS ORDERED: FERROUS SULFATE 325 MG TABLET PO SCH (09:00)
[2022-01-13] MEDS: carvediloL 6.25 MG TABLET PO SCH (10:59)
[2022-01-13 12:06] VITALS: BP 159/100
== END 2022-01-13 13:36 | disposition home or self-care (01) ==
LOC: EDUNIT# → EDBD → N.ED 12:01 → N.EDINP 12:01 → SUATTDRO 15:00 → N.TELES 18:21
PROVIDERS: ADMIT Internal Medicine; ATTEND Family Medicine